=== PATIENT | male | born 1990 | race Caucasian/White ===

== ENCOUNTER 2019-05-16 17:02 | Observation (INO) ==
--- NOTE | 2019-05-16 18:19 | ED.PDOC ---
General ED Provider: Dr. NELIDA MALHOTRA Chief Complaint: Chest Pain Stated Complaint: chest pain Time Seen by Physician: 17:00 Mode of Arrival: Walk-In Information Source: Patient Exam Limitations: No limitations Nursing and Triage Documentation Reviewed and Agree: Yes Does patient meet sepsis criteria?: No System Inflammatory Response Syndrome: Not Applicable Sepsis Protocol: For patient's 13 years and over: Temp is 96.8 and below OR 101 and greater Pulse >90 BPM Resp >20/minute Acutely Altered Mental Status Are patient's symptoms suggestive of a new infection, such as: -Pneumonia -Skin, Soft Tissue -Endocarditis -UTI -Bone, Joint Infection -Implantable Device -Acute Abdominal Infection -Wound Infection -Meningitis -Blood Stream Catheter Infection -Unknown Cardiovascular Complaint Exam - Chest Pain Complaint/Exam Onset: Sudden Duration: 10 min Symptoms Are: Resolved Timing: Intermittent Length of Chest Pain Episodes: 10 min Initial Severity: Mild Location: Reports: Discrete, Midsternal Pain Radiates: Reports: Neck Character: Reports: Aching Aggravating: Reports: None Alleviating: Reports: Spontaneous resolution Associated Signs and Symptoms: Denies: Diaphoresis, Nausea, Vomiting, Fever, Palpitations, Cough, Hemoptysis, Back pain, Abdominal pain, Dizziness, Short of air, Calf pain, Calf swelling Related Surgical History: Reports: None History of Healthcare-Acquired Pneumonia: Reports: No AMI/ACS Risk Factors: Reports: None TAD Risk Factors: Reports: None Pulmonary Embolism Risk Factors: Reports: None Prior Care for this Complaint: No Recent Stress Test: No Recent Echo/LV Function: No JVD Present: No Subcutaneous Emphysema Present: No Diminshed Breath Sounds: No Reproducible Chest Wall Pain: No Bilateral Pulses Present: Yes Unequal Pulses Noted: No If Risk Factors for AMI/ACS Consider: EKG, Cardiac Enzymes Differential Diagnoses: Stable Angina, Chest Wall Pain, GI Diseasae, Lower Resp. Infection Quality Indicators For Acute NE or Cardiac Chest Pain: EKG in 10min. Review of Systems - Review Of Systems Constitutional: Reports: No symptoms Eyes: Reports: No symptoms Ears, Nose, Mouth, Throat: Reports: No symptoms Respiratory: Reports: No symptoms Cardiac: Reports: Chest pain GI: Reports: No symptoms : Reports: No symptoms Musculoskeletal: Reports: No symptoms Skin: Reports: No symptoms Neurological: Reports: No symptoms Endocrine: Reports: No symptoms Hematologic/Lymphatic: Reports: No symptoms All Other Systems: Reviewed and Negative Past Medical History - Past Medical History Previously Healthy: Yes Endocrine: Reports: None Cardiovascular: Reports: None Respiratory: Reports: None Hematological: Reports: None Gastrointestinal: Reports: None Genitourinary: Reports: None Neuro/Psych: Reports: None Musculoskeletal: Reports: None Cancer: Reports: None - Surgical History General Surgical History: Reports: None - Family History Family History: Reports: None - Social History Smoking Status: Never smoker Hx Substance Use: No Alcohol Screening: None Physical Exam - Physical Exam Appearance: Well-appearing, No pain distress, Well-nourished Eyes: JR, EOMI, Conjunctiva clear ENT: Ears normal, Nose normal, Oropharynx normal Respiratory: Airway patent, Breath sounds clear, Breath sounds equal, Respirations nonlabored Cardiovascular: RRR, Pulses normal, No rub, No murmur GI/: Soft, Nontender, No masses, Bowel sounds normal, No Organomegaly Musculoskeletal: Normal strength, ROM intact, No edema, No calf tenderness Skin: Warm, Dry, Normal color Neurological: Sensation intact, Motor intact, Reflexes intact, Cranial nerves intact, Alert, Oriented Psychiatric: Affect appropriate, Mood appropriate Interpretation - Radiology Interpretation Radiology Interpretation By: Radiologist Radiology Results: No acute changes Exam Interpreted: 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 Rate: Normal Rhythm: Sinus Ectopy: None Physician Notification - Case Discussed Physician Notified: wilkins Time of Notification: 18:19 (stated if the imaging is negative for an acute process admitt ) Critical Care Note - Critical Care Note Total Time (mins): 0 Course - Course Hematology/Chemistry: 05/16/19 17:42 05/16/19 17:42 Orders, Labs, Meds: Lab Review 05/16/19 05/16/19 17:42 17:42 WBC 10.13 RBC 5.13 Hgb 14.7 Hct 45.3 MCV 88.3 MCH 28.7 MCHC 32.5 RDW Coeff of Naomi 13.4 Plt Count 282 Immature Gran % (Auto) 0.1 Neut % (Auto) 70.3 Lymph % (Auto) 20.6 [place] % (Auto) 5.7 Eos % (Auto) 2.7 Baso % (Auto) 0.6 Immature Gran # (Auto) 0.0 Neut # (Auto) 7.1 H Lymph # (Auto) 2.1 [place] # (Auto) 0.6 Eos # (Auto) 0.3 Baso # (Auto) 0.1 Sodium 141.6 Potassium 4.16 Chloride 100.7 Carbon Dioxide 32.6 H Anion Gap 12.46 BUN 11.1 Creatinine 0.76 Estimated GFR (MDRD) 122.00 BUN/Creatinine Ratio 14.60 Glucose 99.5 Calcium 9.25 Total Bilirubin 0.38 AST 15.7 L ALT 13.0 Alkaline Phosphatase 101.0 Total Creatine Kinase 37.3 L Troponin I < 0.012 Total Protein 7.71 Albumin 4.52 Globulin 3.19 Albumin/Globulin Ratio 1.41 Orders Category Date Time Status EKG-(ED ONLY) Stat CARDIO 05/16/19 17:32 Completed NPO REMINDER: IMAGING ONCE CARE 05/16/19 17:32 Active ED IV/MEDIPORT/POWERPORT .ONCE EMERGENCY 05/16/19 17:32 Active CBC W/ AUTO DIFF Stat LAB 05/16/19 17:42 Completed COMPREHENSIVE METABOLIC PANEL Stat LAB 05/16/19 17:42 Completed CREATINE KINASE Stat LAB 05/16/19 17:42 Completed TROPONIN I Stat LAB 05/16/19 17:42 Completed 0.9 % Sodium Chloride [Saline Flush] MEDS 05/16/19 17:32 Ordered 1 syr IVF PRN PRN CT CHEST PE PROTOCOL Stat RADS 05/16/19 17:32 Ordered Medications Generic Name Dose Route Start Last Admin Trade Name Freq PRN Reason Stop Dose Admin Sodium Chloride 1 syr 05/16/19 17:32 Saline Flush IVF PRN PRN To flush IV Vital Signs: Temp Pulse Resp BP Pulse Ox 05/16/19 17:02 99.4 F 72 18 143/85 H 98 ASHLEY Risk Score ASHLEY Risk Score: Risk Score Odds of by 30D 0 0.1 (0.1-0.2) 1 0.3 (0.2-0.3) 2 0.4 (0.3-0.5) 3 0.7 (0.6-0.9) 4 1.2 (1.0-1.5) 5 2.2 (1.9-2.6) 6 3.0 (2.5-3.6) 7 4.8 (3.8-6.1) Departure - Departure Time of Disposition: 19:00 Disposition: ADMITTED INPATIENT Discharge Problem: Chest pain Condition: Good Pt referred to PMD for follow-up: Yes IPMP verified?: No Allergies/Adverse Reactions: Allergies Milk Containing Products Adverse Reaction (Verified 05/16/19 17:07) Home Medications: Ambulatory Orders 1 [No Reported Medications] 05/16/19 Disposition Discussed With: Patient, Family
[2019-05-16] MEDS ORDERED: ASPIRIN CHEWABLE PO STA (18:20)
--- NOTE | 2019-05-16 19:03 | CT ---
Exam: CT angiography of the chest History: Chest pain Technique: [address] of the chest utilizing CT angiography protocol. Multiplanar and max imum intensity projection reformations were performed. FINDINGS: Technically adequate for evaluation of pulmonary arteries and aorta. There are no pulmona ry artery filling defects. The lung windows show no pulmonary parenchymal abnormality. Normal heart , great vessels and pericardium. No pathologic lymph node enlargement or abundance of mediastinum. No acute findings of the chest wall soft tissues or bony thorax. No abnormality of the upper abdomen . Impression: 1. No evidence of pulmonary artery thrombus. No abnormality of the chest.
[2019-05-16 20:28] VITALS: BMI 42.5
[2019-05-16] MEDS ORDERED: PROTONIX ONE (21:35)
[2019-05-16] MEDS: PROTONIX PO SCH (21:42)
[2019-05-16] MEDS: SODIUM CHLORIDE 1,000 ML IV SCH (21:43)
[2019-05-17] MEDS: PROTONIX PO SCH (05:34)
--- NOTE | 2019-05-17 08:32 | PCM.PROG ---
Attending Provider: ATTENDING PROVIDER[facility] DATE OF SERVICE: 05/17/19 SUBJECTIVE: This 28 year old OTHER M was hospitalized 05/16/19 with chest pain. No evidence myocardial event with negative cardiac markers and EKG. Chest pain is atypical for coronary insufficiency. No evidence of CHF. REVIEW OF SYSTEMS: CONSTITUTIONAL: No night sweats. No fatigue, malaise, lethargy. No fever or chills. HEENT: Eyes: No visual changes. No eye pain. No eye discharge. ENT: No runny nose. No epistaxis. No sinus pain. No odynophagia. No congestion. RESPIRATORY: No cough, no congestion. No hemoptysis. No shortness of breath. CARDIOVASCULAR: No angina symptoms. No CHF symptoms. No atypical chest pain for CAD. No palpitations. No orthopnea.. GASTROINTESTINAL: No abdominal pain. No nausea or vomiting. No diarrhea or constipation. No hematemesis. No hematochezia. GENITOURINARY: No urgency. No frequency. No dysuria. No hematuria. No obstructive symptoms. No discharge. No pain. No significant abnormal bleeding. MUSCULOSKELETAL: No musculoskeletal pain; no joint swelling. NEUROLOGICAL: Awake, alert, oriented to time, place and person. No headache. No neck pain. No syncope. No seizures. No dizziness. PSYCHIATRIC: Not anxious. No depression. No suicidal thoughts. No homicidal thoughts. SKIN: No rash. No lesions. No wounds. ENDOCRINE: No unexplained weight loss. No weight gain. HEMATOLOGIC/LYMPHATIC: No anemia. No purpura. No petechiae. No prolonged or excessive bleeding. No palpable lymph nodes. PHYSICAL EXAMINATION: GENERAL: The patient is awake, alert and oriented to time, place and person, lying in bed in no distress. VITAL SIGNS: Temperature 97.7 F, Pulse 72, Respiratory Rate 16, BP 120/77, Pulse Ox 98% HEENT: Head normocephalic, atraumatic. Eyes: Extraocular muscles are intact. Pupils are equal, round and reactive to light and accommodation. Ears: No lesions. Nose appeared normal. Throat: No exudate or erythema. NECK: Supple. No JVD, no carotid bruit. No lymphadenopathy or thyromegaly. LUNGS: Clear to auscultation. Percussion note normal. Chest symmetrical. HEART: S1, S2, no S3. No murmurs. No cyanosis or clubbing. No ascites. Pulses: Dorsalis pedis and posterior tibial pulses +1 to +2 both sides. ABDOMEN: Soft. Non-tender. Bowel sounds active. No CVA tenderness. No mass felt. EXTREMITIES: No edema. Full range of motion of all extremities, equal. NEUROLOGIC: No focal deficit. Cranial nerves II through XII are grossly intact. No headache, no double vision or headache. SKIN: Warm and dry. Intact. Turgor-normal. LYMPHATIC: No palpable lymph nodes/no lymphedema. MUSCULOSKELETAL: Normal joints with no swelling. Muscle tone is normal. LAB REVIEW: 05/17/19 04:30 05/17/19 04:30 05/17/19 05:23: Triglycerides 71.7, Cholesterol 138.3, LDL Cholesterol, Calc 102 , VLDL Cholesterol 14, HDL Cholesterol 22.3 L, Cholesterol/HDL Ratio 6.2, TSH 6.970 H 05/17/19 04:30: Sodium 141.4, Potassium 3.80, Chloride 102.7, Carbon Dioxide 31.7 H, Anion Gap 10.80, BUN 11.2, Creatinine 0.71, Estimated GFR (MDRD) 132.00 , BUN/Creatinine Ratio 15.77, Glucose 114.1 H, Calcium 8.88, Total Bilirubin 0.55, AST 18.5, ALT 11.6, Alkaline Phosphatase 78.1, Total Protein 6.70, Albumin 3.80, Globulin 2.90, Albumin/Globulin Ratio 1.31 05/17/19 04:30: WBC 8.93, RBC 4.75, Hgb 13.8 L, Hct 42.4, MCV 89.3, MCH 29.1, MCHC 32.5, RDW Coeff of Naomi 13.3, Plt Count 275, Immature Gran % (Auto) 0.3, Neut % (Auto) 62.2, Lymph % (Auto) 27.7, [place] % (Auto) 6.2, Eos % (Auto) 3.2, Baso % (Auto) 0.4, Immature Gran # (Auto) 0.0, Neut # (Auto) 5.6, Lymph # (Auto ) 2.5, [place] # (Auto) 0.6, Eos # (Auto) 0.3, Baso # (Auto) 0.0 05/17/19 00:50: Total Creatine Kinase 30.6 L, Troponin I < 0.012 05/16/19 17:42: Sodium 141.6, Potassium 4.16, Chloride 100.7, Carbon Dioxide 32.6 H, Anion Gap 12.46, BUN 11.1, Creatinine 0.76, Estimated GFR (MDRD) 122.00 , BUN/Creatinine Ratio 14.60, Glucose 99.5, Calcium 9.25, Total Bilirubin 0.38, AST 15.7 L, ALT 13.0, Alkaline Phosphatase 101.0, Total Creatine Kinase 37.3 L, Troponin I < 0.012, Total Protein 7.71, Albumin 4.52, Globulin 3.19, Albumin/ Globulin Ratio 1.41 05/16/19 17:42: WBC 10.13, RBC 5.13, Hgb 14.7, Hct 45.3, MCV 88.3, MCH 28.7, MCHC 32.5, RDW Coeff of Naomi 13.4, Plt Count 282, Immature Gran % (Auto) 0.1, Neut % (Auto) 70.3, Lymph % (Auto) 20.6, [place] % (Auto) 5.7, Eos % (Auto) 2.7, Baso % (Auto) 0.6, Immature Gran # (Auto) 0.0, Neut # (Auto) 7.1 H, Lymph # ( Auto) 2.1, [place] # (Auto) 0.6, Eos # (Auto) 0.3, Baso # (Auto) 0.1 ASSESSMENT: Please see below. 1. Chest pain, no evidence of myocardial event, pt waiting for stress echo. 2. Lipid profile abnormal discussed 3. BMI, morbid obesity PLAN: 1. Counseling for diet done 2. Advised to cut down on salt intake 3. DASH diet discussed. Plan and coordination of the patient's care discussed in the presence of Hospital Chaplain and nurse. CONDITION: Stable SCRIBED BY: Bekah HOLLEY scribed while in presence of service [facility] on 05/17/19 ([id number])
[2019-05-17 09:47] VITALS: BP 131/82; TEMP 97.4
[2019-05-17] MEDS: SODIUM CHLORIDE 1,000 ML IV SCH (10:39)
--- NOTE | 2019-05-17 10:58 | HP ---
DATE OF SERVICE: 05/16/19 (OBSERVATION) REASON FOR HOSPITALIZATION: Chest pain. HISTORY OF PRESENT ILLNESS: 28-year-old white male brought to the emergency room with complaint of chest pain, left-sided going through to the back, more like a tightness, duration 24 hours. The patient says that he has heartburn type of feeling but that is entirely different than what he has been experiencing for the past 24 hours. It is continuous more or less, nonexertional. PAST MEDICAL/SURGICAL HISTORY: Appendectomy several years ago. REVIEW OF SYSTEMS: CONSTITUTIONAL: No night sweats. No fatigue, malaise, lethargy. No fever or chills. HEENT: Eyes: No visual changes. No eye pain. No eye discharge. ENT: No runny nose. No epistaxis. No sinus pain. No sore throat. No odynophagia. No ear pain. No congestion. RESPIRATORY: No cough, no congestion. No hemoptysis. No shortness of breath. CARDIOVASCULAR: Chest pain, precordial, rightness type of feeling going through to the back at times, related to exertion, more or less continuous pain for 24 hours. No CHF symptoms. No palpitations. No PND. No orthopnea. GASTROINTESTINAL: No abdominal pain. No nausea or vomiting. No diarrhea or constipation. No hematemesis. No hematochezia. GENITOURINARY: No urgency. No frequency. No dysuria. No hematuria. No obstructive symptoms. No discharge. No pain. No significant abnormal bleeding. MUSCULOSKELETAL: No musculoskeletal pain. No joint swelling. No arthritis. NEUROLOGICAL: No headache. No neck pain. No syncope. No seizures. No dizziness. PSYCHIATRIC: Not anxious. No depression. No suicidal thoughts. No homicidal thoughts. SKIN: No rash. No lesions. No wounds. ENDOCRINE: No unexplained weight loss. No weight gain. HEMATOLOGIC/LYMPHATIC: No anemia. No purpura. No petechiae. No prolonged or excessive bleeding. No palpable lymph nodes. PERSONAL/FAMILY/SOCIAL HISTORY: The patient is , lives with . No kids so far. Nonsmoker. No alcohol abuse. 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 No family history of heart disease. MEDICATIONS: None. ALLERGIES: MILK CONTAINING PRODUCTS PHYSICAL EXAMINATION: GENERAL: The patient is oriented to time, place and person. VITAL SIGNS: Temperature 99.4, pulse 70, respiratory rate 18, BP 140/85, pulse ox 98%. HEENT: Head normocephalic, atraumatic. Eyes: Extraocular muscles are intact. Pupils are equal, round and reactive to light and accommodation. Ears: No lesions. Nose appeared normal. Throat: No exudate or erythema. NECK: Supple. No JVD, no carotid bruit. No lymphadenopathy or thyromegaly. LUNGS: Clear to auscultation. Percussion note normal. Chest symmetrical. HEART: PMI not palpable on auscultation. S1, S2, no S3. No murmur. No cyanosis or clubbing. No ascites. Pulses: Dorsalis pedis and posterior tibial pulses +2 bilaterally. ABDOMEN: Soft. Nontender. Bowel sounds active. No CVA tenderness. No mass felt. EXTREMITIES: Equal. Full range of motion of all extremities, equal. TON CYLINDER INSPECTOR: Mental status and entire TON CYLINDER INSPECTOR examination normal. SKIN: Not dry. Intact. Turgor - normal. LYMPHATIC: No palpable lymph nodes/no lymphedema. MUSCULOSKELETAL: Normal joints with no swelling. Muscle tone is normal. LABS: Hemoglobin 14.7, hematocrit 45, WBC 10,000, normal differential. Creatinine 0.76 , BUN 11, potassium 4.1, liver normal. Cardiac markers negative, his troponin and CK. EKG sinus rhythm normal tracing. Telemetry sinus rhythm, no ST-T wave changes. ASSESSMENT: 1. CHEST PAIN SEEMS TO BE STEADY PRECORDIAL WITHOUT ID OR ISCHEMIA. NO EVIDENCE OF ACUTE MYOCARDIAL EVENT. THE PATIENT EXPLAINED ABOUT THIS FINDING. 2. MORBID OBESITY WITH BMI 42. THE PATIENT'S HEIGHT 5'8", WEIGHT 278 LBS. PLAN: 1. Lipid profile, TSH. 2. Protonix to be given 40 mg p.o. twice a day. 3. Echo and stress echo in the morning. 4. Counseling for weight loss and diet done. 5. CAD risk factors discussed. CONDITION: Stable. TIME SPENT: More than 70 minutes. MTDD
--- NOTE | 2019-05-21 14:45 | STRESSECHO ---
Date of Test: 05/17/19 Ordering Physician: DR. 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 Reason for Exam: CHEST PAIN Smoking History: NONE Height: 68" Weight: 279 LBS Current Medications: NO PRESCRIPTION MEDS Resting EKG:SINUS RHYTHM/ NO ACUTE CHANGES Target Heart Rate: 163/192 S-T SEGMENT STAGE MPH/GRADE HEART RATE BPM BLOOD PRESSURE MMHG RHYTHM +/- ELEVATION DEPRESSION SYMPTOMS AT REST 70 BPM 130/70 MMHG SR X NONE 1 1.7/10% 130 BPM 140/70 MMHG SR X NONE 2 2.5/12% 3 3.4/14% 4 4.2/16% 5 5.0/18% Immediately After 164 BPM 148/88 MMHG SR X SHORT OF AIR Minutes Post Exercise 5:00 93 BPM 120/70 MMHG SR S NONE Minutes Post Exercise DURATION OF EXERCISE: 5:28 MAXIMUM HEART RATE REACHED: 164 BPM REASON FOR TERMINATION: SHORT OF AIR 100% OXYGEN SATURATION WITH EXERCISE ON ROOM AIR METS 7.0 INTERPRETATION: 1. NO EVIDENCE OF ISCHEMIA BY ST-T WAVE 2. NO CHEST PAIN OR DISCOMFORT 3. BLOOD PRESSURE RESPONSE: NORMAL 4. NO ARRHYTHMIAS MTDD
--- NOTE | 2019-05-21 14:48 | ECHOSTRESS ---
Date of Exam: 05/17/19 Ordering Physician: DR. CODEY CISNEROS, HOSPITALIST Reason for Echo: CHEST PAIN, STRESS TEST--NO ISCHEMIA M-Mode Normal Adult Results LV Dimensions Normal Adult Results AoV Opening excursions >1.6 LVEDD-base- 3.5-5.8 Ao root dimensions 2.0-3.7 LVESD-base- 3.1-4.6 L. Atrium dimensions 1.9-3.8 Post. Wall thickness 0.8-1.1 IV septum (thickness) 0.7-1.2 Post. Wall excursion 0.72-1.3 Septal motion Systolic motion R. Ventricular cavity 1.5-2.0 LVEF 60% Paradoxical septal wall motion 2-D: NORMAL LEFT VENTRICULAR CONTRACTILITY--RESTING AND POST EXERCISE M-MODE: MV: AV: TV: PV: CHAMBER SIZE: WALL MOTION: NORMAL LEFT VENTRICULAR CONTRACTILITY--RESTING AND POST EXERCISE PERICARDIUM: INTERPRETATION: 1. NORMAL LEFT VENTRICULAR CONTRACTILITY--RESTING AND POST EXERCISE MTDD
--- NOTE | 2019-05-22 11:26 | DS ---
DATE OF SERVICE: 05/15/19 FINAL DIAGNOSIS: 1. CHEST PAIN, NONCARDIAC 2. MORBID OBESITY 3. DYSLIPIDEMIA DISCHARGE INSTRUCTIONS: 1. Followup appointment with Dr. Conn/Flori Marquis APRN on May 22 at 10 a.m. Please call and reschedule if unable to keep appointment. 2. Please return to outpatient registration at [facility] for 2D Echo on May 22. Please arrive at 0645. 3. The patient may return to work on May 21 without any restrictions. MEDICATIONS AT DISCHARGE: None. NEW PRESCRIPTIONS: None. DISCONTINUED MEDICATIONS: None, DIET INSTRUCTIONS: Low salt. ACTIVITY: As tolerated. SMOKING: Nonsmoker DISEASE SPECIFIC EDUCATION: Lifestyle modifications, risk factors, diet, exercise and weight loss discussed. Followup appointment. Appointment for outpatient stress testing. When to return to work. HOSPITAL COURSE: 28-year-old white male hospitalized with chest pain, precordial going through to the back, burning, tightness type of feeling. No sweating. It is more or less continuous, off and on for 24 hours duration. The patient's EKG and cardiac markers were negative for acute myocardial type of event. His stress echo with METS level of 7 with normal Javier protocol, did not show any ST-T wave change. He reached his target heart rate. No arrhythmias were noted. The patient's oxygen saturation was 100%. His LV contractility at rest and post exercise was normal. The patient was explained about the risk factors, advised to problems of sedentary lifestyle, weight loss diet discussed. Lipid profile will be discussed during his office visit. Condition at time of discharge stable. TIME SPENT: More than 60 minutes. SONIDO
--- NOTE | 2019-05-22 11:28 | PN ---
BILLING 05/16/19 ADMISSION DAY LEVEL 5 05/17/19 DISCHARGE PATIENT ON 24 HOUR OBSERVATION WITH ONE CODE MTDD
== END 2019-05-17 13:45 | disposition home or self-care (01) ==
LOC: ED 17:02 → INTOOBSV 19:39 → UNDOADMIN 19:39 → MEDSURG B 19:39
PROVIDERS: ADMIT Internal Medicine; ATTEND Internal Medicine
DX: R07.9 Chest pain, unspecified (principal); E66.01 Morbid (severe) obesity due to excess calories; Z68.41 Body mass index [BMI] 40.0-44.9, adult; Z71.3 Dietary counseling and surveillance; E78.5 Hyperlipidemia, unspecified
CPT/HCPCS: 36415; 80053; 80061; 82550; 84443; 84484; 85025; 93005; 93010; 96360; 96361; 99284